=== PATIENT | female | born 1930 | race Caucasian/White ===

== ENCOUNTER 2016-07-25 11:01 | Inpatient (IN) | payer MEDICARE, OTHER ==
[~2016-07-25] VITALS: Ht 157.5 cm; Wt 49.7 kg
--- NOTE | ~2016-07-25 | DS ---
PATIENT'S NAME: SVETLANA AUSTIN [facility] AGE: 85 Y [address] ROOM: [place] [address] LOCATION: [facility] ADMIT DATE: 07/25/2016 Discharge Summary DISCHARGE DATE: 07/27/2016 FAMILY PHYSICIAN: Delma Spaulding PA-C ATTENDING PHYSICIAN: Eliane Hopkins REASON FOR ADMISSION: The patient was transferred from an outside facility with a diagnosis of subdural hematoma. The subdural hematoma was not large enough to require treatment and clinically the patient was stable. COURSE IN THE HOSPITAL: The patient was treated nonoperatively. She underwent a repeat CT scan on July 27, 2016. The CT scan showed a stable small subdural hematoma along the left tentorium. This was not surgical. The patient was transferred back to [facility] swing bed on July 27, 2016. FINAL DIAGNOSIS: Small left tentorial subdural hematoma, treated nonsurgically. MD SUSANA LANDAVERDE/modl /[id number] d: [id number]/08/[id number] t: 08/12/16 1339, DISCHARGE SUMMARY
--- NOTE | ~2016-07-25 | HP ---
PATIENT'S NAME: SVETLANA AUSTIN [facility] AGE: 85 Y [address] ROOM: [place] [address] LOCATION: [facility] ADMIT DATE: 07/25/2016 History & Physical DISCHARGE DATE: 07/27/2016 FAMILY PHYSICIAN: Delma Spaulding PA-C ATTENDING PHYSICIAN: Eliane Hopkins DATE OF SERVICE: 07/25/2016 PATIENT IDENTIFICATION: Svetlana Austin is an 85-year-old female. PRESENTING COMPLAINT: Fall. HISTORY OF PRESENT ILLNESS: The patient was seen at [facility] Emergency Room with complaints of fall and hitting her head. The patient resides in a Long-Term. The Long-Term Staff report finding the patient in a prone position, and noting some blood coming from the head area. The patient was alert when she was found. The patient says she slipped when trying to get out of bed, and thinks she hit the end table. She was also complaining of some back pain, and the head and neck felt sore. The patient denied any changes in her vision. No dizziness or nausea. No weakness. PAST MEDICAL HISTORY: Significant for 1. Parkinsonism. 2. Dementia. 3. Depression. 4. Osteoarthritis. CURRENT MEDICATIONS: Please see list. ALLERGIES: SULFA. REVIEW OF SYSTEMS: A ten-point review of systems was carried out. The only abnormal findings are described in the history of present illness. PHYSICAL EXAMINATION: VITAL SIGNS: On examination, vital signs with 124/74 and pulse rate of 82. NEUROLOGICAL: The patient was alert and oriented x2. Speech was coherent. Cranial nerves, no deficits were seen. On motor examination, the patient PATIENT'S NAME: SVETLANA AUSTIN [facility] AGE: 85 Y [address] ROOM: [address] [address] LOCATION: [facility] ADMIT DATE: 07/25/2016 History & Physical DISCHARGE DATE: 07/27/2016 FAMILY PHYSICIAN: Delma Spaulding PA-C ATTENDING PHYSICIAN: Eliane Hopkins moves all extremities. Gait was not tested. HEAD: There is a small hematoma on the posterior part of her scalp with a puncture wound. We did staple the puncture wound here at [facility]. EYES AND EARS: No evidence of trauma. SKIN: No skin rashes or skin masses. EXTREMITIES: No cyanosis or clubbing. REVIEW OF IMAGING STUDIES: The patient has a head CT scan. It shows a small subdural hematoma along the left tentorium. MEDICAL DECISION MAKING: The patient was admitted for observation. A repeat CT scan will be performed. The puncture wound on the head was stapled. There was no reason for neurosurgical intervention. I expect the patient to stay a couple of nights in hospital, and be ready for transfer back to [place]. MD SUSANA LANDAVERDE/modl /[id number] D: [id number] T: [id number] HISTORY & PHYSICAL
[2016-07-25] MEDS ORDERED: COLACE100 MG PO (11:38)
[2016-07-25] MEDS ORDERED: SENNA8.6 MG PO (11:39)
[2016-07-25] MEDS ORDERED: SEROQUEL XR50 MG PO (11:39)
[2016-07-25] MEDS ORDERED: VIACTIV SOFT C1 EACH PO (11:42)
[2016-07-25] MEDS ORDERED: SINEMET 10/1001 TAB PO (11:42)
[2016-07-25] MEDS ORDERED: ASPIRIN LO-DOSE81 MG PO (11:43)
[2016-07-25] MEDS ORDERED: ULTRAM50 MG PO (11:43)
[2016-07-25] MEDS ORDERED: CYMBALTA60 MG PO (11:44)
[2016-07-25] MEDS ORDERED: THERAGRAN-M1 TAB PO (11:44)
[2016-07-25] MEDS ORDERED: HYPROST1 EACH PO (11:44)
[2016-07-25] MEDS ORDERED: MIRALAX17 GM PO (11:44)
[2016-07-25] MEDS ORDERED: [UNRECOGNIZED DRUG - OTHER] PO (11:45)
[2016-07-25] MEDS ORDERED: CLARITIN10 MG PO (11:47)
[2016-07-25] MEDS ORDERED: PERIDEX15 ML PO (11:47)
[2016-07-25] MEDS ORDERED: REMERON15 MG PO (11:47)
[2016-07-25] MEDS ORDERED: TYLENOL ARTHRI650 MG PO ×2 (11:48→11:50)
[2016-07-25] MEDS ORDERED: ANUSOL-HC CREAM30 GM R (11:48)
[2016-07-25] MEDS ORDERED: PREVIDENT 500051 GM PO (11:49)
[2016-07-25] MEDS ORDERED: MILK OF MA400 MG/5 M PO (11:53)
[2016-07-25] MEDS ORDERED: DULCOLAX10 MG R (11:53)
--- NOTE | 2016-07-25 11:57 | NUR ---
Pt is 85 y/o female admit for subdural hematoma for . Allergy to sulfa. Red and yellow bracelets on. Red socks on. Ultra high fall risk red light on. Pt resides at intermediate in [place]. Found lying on floor with blood coming from head. Pt has hx dementia and is poor historian. Oriented to person. Small hematoma posterior scalp. Arrived with dressing on head. EMS also reports she has a small puncture wound to head as well. Hx Parkinsons, depression,OA,allergic rhinitis,incontinence,recent UTI,constipation. Uses a walker for ambulation at intermediate. Pt's daughter to come this afternoon.
--- NOTE | 2016-07-25 19:10 | NUR ---
Significant Event: PT ADMITTED AT 1105 PER AMBULANCE CREW FOR A L)SUBDURAL HEMATOMA. THE PT IS FROM A [facility] AND FELL. HX PARKINSONS'S, DEMENTIA, DEPRESSION, RECENT UTI, CONSTIPATION. WHEN THE PT ARRIVED, SHE WAS DISORIENTED TO TOWN/YEAR/AGE. FOR THE THIRD ASSESSMENT, PT WAS DISORIENTED TO PLACE. PERRLA. MOVES ALL EXTREMITIES TO COMMAND AND SPONTANEOUSLY. WEAK, EQUAL STRENGTH X4. TRANSFERS WITH 2-ASSIST/GAIT BELT. UP TO COMMODE. INCONTINENT URINE; WEARS PULL-UP BRIEFS. NO COMPLAINTS OR S/S PAIN. HAS BEEN UP IN THE CHAIR SINCE MID-AFTERNOON. BUTTOCKS ARE SLIGHTLY REDDENED; SMALL HEMATOMA TO OCCIPITAL HEAD-PRESSURE DRESSING REMOVED-OLD, DRIED BLOOD NOTED. BILATERAL CALF PUMPS ON. IV TO R)AC SALINE LOCKED. REGULAR DIET; NEEDS PO ENCOURAGEMENT. DAUGHTER ARRIVED LATE THIS AFTERNOON. Follow up: CONTINUE TO MONITOR
--- NOTE | 2016-07-26 05:02 | NUR ---
Significant Event: PATIENT IS VERY PLEASANT. ORIENTED TO SELF. ANSWERS QUESTIONS APPROPRIATELY. VSS. HX PARKINSONS, DEMENTIA. NIH 2. GENERALIZED WEAKNESS. RESIDES IN A NURSING FACILITY IN [place], [place]. Follow up:
--- NOTE | 2016-07-26 11:30 | NUR ---
Introduced self and role of care management to patient and her family. She resides at the [facility] in [facility]. She states that the staff do assist her in completing her ADL's. She and her family plan on her returning to the retirement on discharge. Her family would like to transport her in the car if at all possible. I explained we would wait and see how she is geting up and around and then make the appropriate transport plans. They verbalize understanding. They deny any needs at this time. Will continue to follow.
--- NOTE | 2016-07-26 12:17 | NUR ---
Significant Event:PT IS ALERT TO SELF. MAEW. NO C/O NUMBNESS OR TINGLING. GENERALIZED WEAKNESS. 1A GB WALKER. SLOW TO MOVE. CLEAR LUNG SOUNDS ON RA. ACTIVE BS. NO BM THIS SHIFT. IV R) AC SL'D. GAVE MEDS IN APPLE SAUCE. GEOVANNY TO HEAD INTACT. Follow up:MONITOR NEURO
--- NOTE | 2016-07-27 04:31 | NUR ---
Significant Event: PATIENT IS ALERT AND ORIENTED TO SELF. SHE ANSWERS QUESTIONS APPROPRIATELY MOST OF THE TIME. FORGETFUL . BED ALARMS IN PLACE. DOES NOT CALL BUT IS NOT IMPULSITE. VSS. UP TO BSC TO VOID. WEARS BRIEF. Follow up: POSSIBLY CT SCAN TODAY THEN HOME.
--- NOTE | 2016-07-27 14:45 | NUR ---
A&O X1 DEMENTIA HX. 1-2PA UNSTEADY AND WEAK AT TIMES. VSS. SBP 100'S-140'S. HR NS 80'S90'S. RA. AFEBRILE. C/O OF SOME PAIN TO BACK OF HEAD AND TAILBODE. SCHEDULED TRAMADOL X2 LAST AT 1430. BACK OF HEAD BRUISE WITH 5 GEOVANNY NOTED OPEN TO AIR AND INTACT. LS CLEAR/DIM. VD'S PER BR X3 TODAY. MOD BM X1 TODAY. AMB IN ROWE X2 TODAY. PERRLA 3MM/BRISK. REPEAT CT DONE TODAY. CONFUSED AND TEARFUL AT TIMES. DOES NOT USE CALL LIGHT APPROPRIATELY, ALARMS/TABS. DAUGHTER AT BEDSIDE AND IS TRANSPORTING BACK TO [facility] PER PRIVATE VEHICLE TODAY.
== END 2016-07-27 15:04 | DRG 87 ==
LOC: GNTU 11:01
PROVIDERS: ADMIT Neurological Surgery
PROC: 0HQ0XZZ Repair Scalp Skin, External Approach (ICD-10-PCS; principal; 2016-07-25)
DX: S06.5X0A Traumatic subdural hemorrhage without loss of consciousness, initial encounter (principal); G20 Parkinson's disease; F03.90 Unspecified dementia, unspecified severity, without behavioral disturbance, psychotic disturbance, mood disturbance, and anxiety; F32.9 Major depressive disorder, single episode, unspecified; M19.90 Unspecified osteoarthritis, unspecified site; W19.XXXA Unspecified fall, initial encounter; S01.03XA Puncture wound without foreign body of scalp, initial encounter